=== PATIENT | female | born 1990 | race Caucasian/White ===

== ENCOUNTER 2023-11-03 08:57 | Outpatient (CLI) | payer BC, SELFPAY ==
--- NOTE | 2023-11-03 09:15 | CRLHL7_ITS ---
For Patients: As a result of the Century Cures Act, medical imaging exams and procedure reports are released immediately into your electronic medical record. You may view this report before your referring provider. If you have questions, please contact your health care provider. INDICATION: EXCESSIVE AND FREQUENT BLEEDING COMPARISON: none TECHNIQUE: 2D osuna scale and color Doppler images were acquired of the pelvis using a transabdominal and transvaginal approach. FINDINGS: Sonographic images demonstrate a normal size and smooth outer contour of the uterus. Uterus measures 7.1 cm in length by 5.0 cm in AP diameter by 6.1 cm in transverse dimension. The myometrium has a normal uniform echotexture. The endometrial lining appears thickened and measures 14 mm in composite thickness. Hyperechoic focus associated with the endometrium measuring 5 x 5 x 5 millimeters. Smaller hyperechoic focus also noted measuring 4 x 3 x 4 millimeters. The right ovary measures 3.8 x 1.9 x 2.3 cm in size and the left ovary measures 4.1 x 2.0 x 2.7 cm. The ovaries demonstrate normal arterial and venous blood flow on color Doppler analysis. There are no suspicious fluid collections within the cul-de-sac. IMPRESSION: Thickened endometrium measuring 1.4 cm with suspicion of endometrial polyps measuring 5 millimeters and 4 millimeters. No uterine fibroid. Dictated by Doe Moser MD @ 11/03/2023 11:37:54 AM (Electronically Signed)
== END 2023-11-03 08:58 | disposition home or self-care (01) ==
LOC: US 08:58
PROVIDERS: PCP Surgery; Visit Provider Obstetrics & Gynecology
DX: N92.0 Excessive and frequent menstruation with regular cycle (principal); R93.89 Abnormal findings on diagnostic imaging of other specified body structures
CPT/HCPCS: 76830; 76856

== ENCOUNTER 2023-11-11 07:18 | Day surgery (SDC) | payer BC, SELFPAY ==
[2023-11-11] VITALS (13 sets, daily range): BP systolic 105–127; BP diastolic 62–82; PULSE 68–96; RESP 12–16; TEMP 36.1–36.8; O2SAT 98–100; BMI 27.2
[2023-11-11] MEDS: LACTATED RINGERS 1000 ML 1,000 ML 100 ML IV (07:25)
[2023-11-11 07:46] LABS: Ur HCG Qualitative* Negative (Negative)
[2023-11-11] MEDS: SODIUM CHLORIDE 0.9 % (FLUSH) 10 ML SYRINGE IVF (08:11)
--- NOTE | 2023-11-11 08:21 | W.PM.H&PU ---
History & Physical Update History & Physical Update H&P Reviewed and patient assessed: No changes noted
[2023-11-11] MEDS: BUPIVACAINE 0.25% 30 ML INJECTION (09:25)
[2023-11-11] MEDS: SILVER NITRATE APPLICATOR 1 EACH STICK..EA. TOPICAL (10:00)
--- NOTE | 2023-11-11 10:17 | P.GYNPRC_ITS ---
Procedure Note Date of procedure: 11/11/23 Pre-op diagnosis: Menorrhagia, undesired fertility Post-op diagnosis: same Procedure: Hysteroscopy, dilation and curettage, Kayleigh endometrial ablation Laparoscopy with bilateral salpingectomy Anesthesia: GETA Complications: None Surgeon: Yamel Serna MD Estimated blood loss (mL): 20 IV fluids (mL): 800 Urine Output (mL): 350 Pathology: specimen obtained, sent to pathology (1. Endometrial curettings. 2. Left Fallopian tube. 3. Right Fallopian tube. ) Condition: stable Disposition: same day Findings: 1. Upon pelvic exam under anesthesia, the cervix and vagina were normal in appearance. Uterus was mobile and anteverted, of normal size and texture. There were no palpable adnexal masses. 2. Upon hysteroscopy, the endocervix was normal appearance. The endometrial cavity was normal in appearance, with uniform appearance to the endometrium and normal bilateral tubal ostia. Sounded depth of uterus was 8 cm, and cervical length 3.5 cm, for a cavity length of 4.5 cm. 3. Upon laparoscopy, survey of the upper abdomen revealed a normal appearance to the inferior edge of the liver, gallbladder and stomach. Bowels were grossly normal appearance, as was the appendix. Survey of the pelvis revealed a vertical anterior uterine scar extending to the level of the left cornua. There was an adhesion of an elongated piece of epiploica of the sigmoid colon to the fundus near the left uterine cornua. The fimbriated edge of the left fallopian tube was also adherent to this site. The left fallopian tube was tortuous and dilated throughout. The utero-ovarian ligament was thickened, but the ovary itself was normal in appearance. Right tube and ovary were normal appearance. The cul-de-sac and bladder reflection were normal in appearance. Procedure Description: Saline deficit: 80 cc Patient was taken to the operating room with IV running. She was positioned in dorsal lithotomy position with her legs fully supported in Yellofin stirrups. General anesthesia was administered. She was prepped and draped in the usual sterile fashion. Aldridge catheter was placed. Exam under anesthesia was performed for the above-noted findings. Speculum was inserted. Cervix visualized and grasped along the anterior lip with a single-tooth tenaculum. Cervix was serially dilated to accommodate the TRUCLEAR hysteroscope. This was assembled with saline inflow and outflow in place. The line was flushed of bubbles. The hysteroscope was advanced through the cervix into the endometrial cavity for the above noted findings. The tissue morcellator was then inserted through the operating channel. Window lock was performed. Under direct visualization, the endometrial cavity was circumferentially curetted with the tissue morcellator. The hysteroscope and morcellator were then removed from the uterus. Uterine and cervical measurements were then performed with the hysteroscope, with findings as noted above. Cervix was serially dilated to accommodate the Kayleigh handheld device. The device was then powered on. The hand-held device was inserted through the cervix and the array was deployed. Appropriate uterine width was noted. The intracervical balloon was then inflated. The pedal was pushed to activate to the cavity integrity test, both of which were passed. The ablation cycle then ensued. Thereafter, the intracervical balloon was deflated, and the device was retracted from the uterus. The tenaculum was removed from the anterior lip of the cervix. A single-toothed uterine manipulator was placed into the lower uterine segment and affixed to the anterior lip of the cervix. Speculum was removed. Patient's legs were placed in neutral position. Attention was turned to patient's abdomen. The infraumbilical area was infiltrated with small amount of Marcaine. An infraumbilical incision was made with a scalpel and carried through to the underlying layer of fascia with a hemostat. The 5 mm Fios Kii trocar was assembled with laparoscope within, and insufflator attached. While tenting up the abdomen manually, the trocar was passed through the anterior abdominal wall into the peritoneal cavity. Trocar was removed. Pneumoperitoneum was achieved. Survey of abdomen and pelvis revealed the above-noted findings. Two additional port sites were created. The first was in the patient's left lower quadrant, just superior medial to the left ASIS. The second was slightly to the left of the umbilical port. Each was infiltrated with small amount of Marcaine prior to incision. A 5 mm incision was made at each site, making sure the large vessels were out of harm's way. A 5 mm Fios Kii port was inserted at each site, under direct visualization and without complication. The balloon on each of these ports was inflated, holding each in place. The placement of the umbilical port was readjusted, as the balloon was not initially inflated from within the abdominal cavity. The elongated epiploica adherent to the uterine fundus was grasped with atraumatic graspers and held on tension away from the fundus. This adhesion was divided at the fundus with the LigaSure device and released. The fimbriae of the left fallopian tube were then pulled away from the fundus, and the adhesions the tube to the fundus were divided with the LigaSure. The distal most end of the left fallopian tube was removed with the LigaSure and sent to pathology. The remaining proximal portion of the fallopian tube was somewhat invested in some scarring of the mesosalpinx to the left utero-ovarian ligament. These adhesions were gently, bluntly lysed, allowing visualization of the remaining tube. This was freed from the mesosalpinx with the LigaSure device and amputated at the fundus. This was sent to pathology along with the dilated fimbriated portions of the same tube. Attention was then turned to the right tube, which was grasped and held on tension away from the right ovary. The tube was divided from the mesosalpinx, moving laterally to medially, and was amputated at the right uterine cornua. This tube was removed from the abdomen and sent to pathology. Suction assembly line leader was used to cleanse the pelvis of blood. Hemostasis was noted of all pedicles. All instruments were removed from the ports. The balloon tips of each port were deflated, and pneumoperitoneum was released. The ports were removed. The skin of each port site was closed with a subcuticular stitch of 4-0 Monocryl. Surgical glue was applied above this. Patient's legs were placed back in lithotomy position. The uterine manipulator was removed from the anterior lip of the cervix. Hemostasis was achieved with silver nitrate. Aldridge catheter was removed. Patient tolerated procedure well. She was taken to recovery area in stable condition.
--- NOTE | 2023-11-11 10:21 | W.ANESCHARGE ---
Anesthesia Charges Start Date/Time Anesthesia Start Date: 11/11/23 Anesthesia Start Time: 08:31 Stop Date/Time Anesthesia Stop Date: 11/11/23 Anesthesia Stop Time: 10:21
--- NOTE | 2023-11-11 10:34 | W.ANESCHARGE ---
Anesthesia Charges Start Date/Time Anesthesia Start Date: 11/11/23 Anesthesia Start Time: 08:31 Stop Date/Time Anesthesia Stop Date: 11/11/23 Anesthesia Stop Time: 10:21
--- NOTE | 2023-11-11 10:51 | SUR.PHASEI ---
patient met discharge criteria per anesthesia
== END 2023-11-11 12:18 | disposition home or self-care (01) ==
PROVIDERS: PCP Surgery; Visit Provider Obstetrics & Gynecology
PROC: 0UF98ZZ Fragmentation in Uterus, Via Natural or Artificial Opening Endoscopic (ICD-10-PCS; CPT 58563; principal; 2023-11-11 08:30)
PROC: (CPT 58661; 2023-11-11 08:30)
DX: N92.0 Excessive and frequent menstruation with regular cycle (principal); Z30.2 Encounter for sterilization; N83.8 Other noninflammatory disorders of ovary, fallopian tube and broad ligament
CPT/HCPCS: 58563; 58661; 00840; 00851; 36415; 81025; 86850; 86900; 86901; 88300; 88302; 88305; A9270; J0330; J0665; J1100; J1200; J1885; J2250; J2405; J2704; J3010; J7120